=== PATIENT | male | born 1945 | race Caucasian/White ===

== ENCOUNTER → 2020-08-13 | Outpatient (CLI) | payer OTHER ==
[~2020-08-13] MED LIST: AMARYL4 MG PO; CARVEDILOL12.5 MG PO; DEXAMETHASONE LT. EYE; FISH OIL 1,0001 EAC9 PO; FLOMAX0.4 MG PO; HYOSCYAMINE0.125 MG PO; KEPPRA100 MG/1 M PO; KLOR-CON 1010 MEQ PO; LO-DOSE ASPIRIN81 M1 PO; MOVE FREE ULTR1 EAC2 PO; NEURONTIN 300M300 M2 PO; NIASPAN 500 MG500 M1 PO; ONGLYZA5 MG PO; PROSCAR 5MG TABL5 M1 PO; PROTONIX40 M2 PO; SIMVASTATIN80 MG PO; SYNTHROID125 MC1 PO; TRANDOLAPRIL4 MG PO
== END ==
LOC: M.PC 09:06
PROVIDERS: ATTEND Physical Medicine & Rehabilitation
DX: M51.17 Intervertebral disc disorders with radiculopathy, lumbosacral region (principal); M47.26 Other spondylosis with radiculopathy, lumbar region